=== PATIENT | female | born 1940 | race Caucasian/White ===

== ENCOUNTER 2017-05-06 06:56 | Day surgery (SDC) | payer MEDICARE ==
[2017-05-06] MEDS ORDERED: LIDOCAINE 1% MDV 20ML VIAL SQ (07:15)
[2017-05-06] MEDS: PROPARACAINE 0.5% OPHTH SOL 15ML OD (07:51)
[2017-05-06] MEDS: TROPICAMIDE 1% OPHTH SOLN 2ML OD (07:51)
[2017-05-06] MEDS: PHENYLEPHRINE 2.5% OPHTH SOL 2ML OD (07:51)
[2017-05-06] MEDS: OFLOXACIN 0.3 % (OCUFLOX) OPTH SOL 5ML OD (07:51)
[2017-05-06 07:52] LABS: BEDSIDE GLUCOSE 138 MG/DL (83-110)
[2017-05-06] MEDS ORDERED: MIDAZOLAM INJ 2 MG/2 ML VIAL (J2250) As Ordered (08:53)
[2017-05-06] MEDS: POVIDONE-IODINE 5% OPHTH PREP SOL 30ML As Ordered (08:53)
[2017-05-06] MEDS ORDERED: fentaNYL 100 MCG/2 ML INJECTION (J3010) As Ordered (08:53)
[2017-05-06] MEDS: BALANCED SALT IRRIGATION SOLUTION 500ML BAG (FOR OR EYE MACHINE) As Ordered (08:58)
[2017-05-06] MEDS: CEFUROXIME 1MG/0.1ML INTRACAMERAL INJ As Ordered (08:59)
[2017-05-06] MEDS: ACETYLCHOLINE OPHTH SOLN 1% 2ML (MIOCHOL-E) As Ordered (08:59)
[2017-05-06] MEDS: LIDOCAINE 0.75%/EPINEPHRINE 0.025% IN BSS 1ML SYR INTRACAMERAL (OR ONLY) As Ordered (08:59)
[2017-05-06] MEDS: DUOVISC (0.50ML VISCOAT/0.55ML PROVISC) OPHTH KIT As Ordered ×2 (08:59)
== END 2017-05-06 09:53 | disposition home or self-care (01) ==
LOC: M SDC 06:56
DX: H25.11 Age-related nuclear cataract, right eye (principal); I10 Essential (primary) hypertension; E11.9 Type 2 diabetes mellitus without complications; E78.5 Hyperlipidemia, unspecified; K21.9 Gastro-esophageal reflux disease without esophagitis; Z87.891 Personal history of nicotine dependence; Z79.899 Other long term (current) drug therapy
CPT/HCPCS: 66984

== ENCOUNTER → 2017-05-13 | Day surgery (SDC) | payer MEDICARE ==
[~2017-05-13] MED LIST: OFLOXACIN 0.3 % (OCUFLOX) OPTH SOL 5ML OS; PHENYLEPHRINE 2.5% OPHTH SOL 2ML OS; PROPARACAINE 0.5% OPHTH SOL 15ML OS; TROPICAMIDE 1% OPHTH SOLN 2ML OS
[2017-05-13] MEDS: POVIDONE-IODINE 5% OPHTH PREP SOL 30ML As Ordered (10:56)
[2017-05-13] MEDS: LIDOCAINE 0.75%/EPINEPHRINE 0.025% IN BSS 1ML SYR INTRACAMERAL (OR ONLY) As Ordered (10:57)
[2017-05-13] MEDS: CEFUROXIME 1MG/0.1ML INTRACAMERAL INJ As Ordered (10:57)
[2017-05-13] MEDS: BALANCED SALT IRRIGATION SOLUTION 500ML BAG (FOR OR EYE MACHINE) As Ordered (10:57)
[2017-05-13] MEDS: DUOVISC (0.50ML VISCOAT/0.55ML PROVISC) OPHTH KIT As Ordered (10:57)
[2017-05-13] MEDS: ACETYLCHOLINE OPHTH SOLN 1% 2ML (MIOCHOL-E) As Ordered (10:57)
== END | disposition home or self-care (01) ==
LOC: M SDC 08:30
DX: H26.9 Unspecified cataract (principal); Z53.9 Procedure and treatment not carried out, unspecified reason

== ENCOUNTER 2017-05-20 06:12 | Day surgery (SDC) | payer MEDICARE ==
[2017-05-20] MEDS: ACETYLCHOLINE OPHTH SOLN 1% 2ML (MIOCHOL-E) As Ordered (06:36)
[2017-05-20] MEDS: PROPARACAINE 0.5% OPHTH SOL 15ML OS (06:57)
[2017-05-20] MEDS: TROPICAMIDE 1% OPHTH SOLN 2ML OS (06:57)
[2017-05-20] MEDS: PHENYLEPHRINE 2.5% OPHTH SOL 2ML OS (06:57)
[2017-05-20] MEDS: OFLOXACIN 0.3 % (OCUFLOX) OPTH SOL 5ML OS (06:57)
[2017-05-20 07:18] LABS: BEDSIDE GLUCOSE 131 MG/DL (83-110)
[2017-05-20] MEDS: POVIDONE-IODINE 5% OPHTH PREP SOL 30ML As Ordered (07:52)
[2017-05-20] MEDS: CEFUROXIME 1MG/0.1ML INTRACAMERAL INJ As Ordered (07:53)
[2017-05-20] MEDS: DUOVISC (0.50ML VISCOAT/0.55ML PROVISC) OPHTH KIT As Ordered (07:53)
[2017-05-20] MEDS: LIDOCAINE 0.75%/EPINEPHRINE 0.025% IN BSS 1ML SYR INTRACAMERAL (OR ONLY) As Ordered (07:53)
[2017-05-20] MEDS: BALANCED SALT IRRIGATION SOLUTION 500ML BAG (FOR OR EYE MACHINE) As Ordered (07:54)
[2017-05-20] MEDS ORDERED: fentaNYL 100 MCG/2 ML INJECTION (J3010) As Ordered (07:55)
[2017-05-20] MEDS ORDERED: MIDAZOLAM INJ 2 MG/2 ML VIAL (J2250) As Ordered (07:55)
== END 2017-05-20 09:03 | disposition home or self-care (01) ==
LOC: M SDC 06:12
DX: H25.12 Age-related nuclear cataract, left eye (principal); I10 Essential (primary) hypertension; E11.9 Type 2 diabetes mellitus without complications; E78.5 Hyperlipidemia, unspecified; K21.9 Gastro-esophageal reflux disease without esophagitis; M12.9 Arthropathy, unspecified; R06.83 Snoring; L71.9 Rosacea, unspecified; F41.0 Panic disorder [episodic paroxysmal anxiety]; Z79.899 Other long term (current) drug therapy; Z79.84 Long term (current) use of oral hypoglycemic drugs; Z90.710 Acquired absence of both cervix and uterus; Z98.51 Tubal ligation status; Z87.891 Personal history of nicotine dependence
CPT/HCPCS: 66984